=== PATIENT | female | born 1950 | race Caucasian/White ===

== ENCOUNTER 2022-08-11 11:55 | Outpatient (CLI) | payer MEDICARE, BC, SELFPAY ==
[2022-08-11 17:19] LABS: Chloride* 98 mmol/L (96-114)
[2022-08-11 17:20] LABS: Potassium* 4.4 mmol/L (3.6-5.1); Sodium* 135 mmol/L (135-149)
[2022-08-11 17:22] LABS: Cholesterol* 180 mg/dL (90-199); Creatinine* 0.5 mg/dL (0.5-1.5); Estimated Glomerular Filt Rate 100 ml/min
[2022-08-11 17:23] LABS: Blood Urea Nitrogen* 11 mg/dL (7-30); Calcium* 9.1 mg/dL (8.4-10.6); Carbon Dioxide* 31 mmol/L (20-32); Glucose* 95 mg/dL (60-115); HDL Cholesterol* 65 mg/dL (>=50); LDL Cholesterol Calculated 98 mg/dL (<100); Triglycerides* 84 mg/dL (40-149)
== END 2022-08-11 11:56 | disposition home or self-care (01) ==
PROVIDERS: PCP Family Medicine; Visit Provider Family Medicine
DX: E03.9 Hypothyroidism, unspecified (principal); E78.5 Hyperlipidemia, unspecified; Z13.1 Encounter for screening for diabetes mellitus; J44.9 Chronic obstructive pulmonary disease, unspecified; F17.210 Nicotine dependence, cigarettes, uncomplicated
CPT/HCPCS: 80048; 80061; 84443

== ENCOUNTER 2023-05-12 13:50 | Outpatient (CLI) | payer MEDICARE, BC, SELFPAY | END 2023-05-12 13:51 | disposition home or self-care (01) | LOC: LONREF 13:50 | PROVIDERS: PCP Family Medicine; Visit Provider Nurse Practitioner Family | DX: E03.9 Hypothyroidism, unspecified (principal); E78.5 Hyperlipidemia, unspecified | CPT/HCPCS: 84443 ==

== ENCOUNTER 2023-11-12 15:36 | Emergency (ER) | payer MEDICARE, BC, SELFPAY ==
[2023-11-12 15:42] VITALS: BP 100/62; PULSE 97; RESP 16; TEMP 36.7; O2SAT 92; BMI 18.3
--- NOTE | 2023-11-12 17:28 | ED.EPISTAXIS ---
History of Present Illness General Date Seen: 11/12/23 Chief Complaint: Epistaxis/Nosebleed Stated Complaint: nose bleed won't stop bleeding, largeclots Time Seen by Provider: 11/12/23 17:22 Source: patient Mode of arrival: ambulatory Limitations: no limitations History of Present Illness HPI Narrative: Patient is a 73-year-old female presenting for epistaxis. She states about 45 minutes prior to arrival to the emergency department she was having epistaxis. She states it started while she was trying to have a bowel movement. She tried to clamp her nose and lean forward and to pack it and nothing seemed to help. She states when it 1st started she was feeling lightheaded and dizzy but those symptoms have fully resolved. By time she arrived to the emergency department the bleeding has stopped. She does states she was passing large clots to her left nares and some was going down the back of her throat. No other concerns noted. Daughter states the patient appears to be acting normal. Related Data Home Medications Medication Instructions Recorded Confirmed aspirin 81 mg tablet,delayed 81 mg PO QDAY 08/11/22 11/12/23 release (Adult Aspirin Regimen) multivitamin (Multiple Vitamins 1 tab PO QDAY 08/11/22 11/12/23 tablet) Previous Rx's Medication Instructions Recorded levothyroxine 100 mcg tablet 100 mcg PO DAILY #90 tabs 09/19/23 Allergies Allergy/AdvReac Type Severity Reaction Status Date / Time No Known Drug Allergies Allergy Verified 11/12/23 15:47 Review of Systems Status of ROS: Reports: 6 or more systems reviewed and unremarkable except as noted in History and below PFSH PFSH Surgical History Status post breast biopsy ?Z98.890 - Other specified postprocedural states (ICD-10) Status post carpal tunnel release (02/11/10) ?Z98.890 - Other specified postprocedural states (ICD-10) Status post right inguinal hernia repair ?Z98.890 - Other specified postprocedural states (ICD-10) ?Z87.19 - Personal history of other diseases of the digestive system (ICD-10) Status post cholecystectomy ?Z90.49 - Acquired absence of other specified parts of digestive tract (ICD-10) Status post appendectomy ?Z90.49 - Acquired absence of other specified parts of digestive tract (ICD-10) Social History Smoking Status: Current every day smoker Second hand tobacco smoke exposure: No How often do you have a drink containing alcohol: never AUDIT-C Alcohol total score: 0 Non-prescribed substance use: denies use Little interest or pleasure in doing things: more than half the days Feeling down, depressed, or hopeless: several days Exam Narrative: Exam Narrative: Const: Well-nourished, Well-developed, in mild distress Eyes: PERRL, no conjunctival injection, and symmetrical lids HENT: Atraumatic external nose and ears. Small amount of blood seen in the back of the throat. Small amount of blood seen left nares but no signs of active bleeding. Neck: Symmetric, trachea midline, No thyromegaly. CVS: RRR, No murmurs or gallops. Peripheral pulses 2+ and equal in all extremities RESP: Unlabored respiratory effort. Clear to auscultation bilaterally. GI: Nontender/Nondistended, No rebound or guarding. MSK:Extremities w/o deformity, Normal Active ROM Skin: Warm, Dry. No rashes or lesions. Neuro: Normal Muscle tone, No focal neurological deficits. Psych: Awake, Alert, & Oriented x3. Appropriate mood and affect. Const: Vital Signs, click to edit/add: Vital Signs - 24 hr 11/12/23 15:42 Temperature 98.0 F Pulse Rate [Pulse Oximeter] 97 Respiratory Rate 16 Blood Pressure [Ri ght Upper Arm] 100/62 Pulse Oximetry 92 Oxygen Delivery Me thod Room Air Course Vital Signs Vital signs: Initial Vital Signs Temperature 98.0 F 11/12/23 15:42 Temperature Source Temporal Artery Scan 11/12/23 15:42 Pulse Rate 97 11/12/23 15:42 Respiratory Rate 16 11/12/23 15:42 Blood Pressure 100/62 11/12/23 15:42 Blood Pressure Mean 74 11/12/23 15:42 Blood Pressure Position Sitting 11/12/23 15:42 Pulse Oximetry 92 11/12/23 15:42 Oxygen Delivery Method Room Air 11/12/23 15:42 Vital Signs Temperature 98.0 F 11/12/23 15:42 Pulse Rate 97 11/12/23 15:42 Respiratory Rate 16 11/12/23 15:42 Blood Pressure 100/62 11/12/23 15:42 Pulse Oximetry 92 11/12/23 15:42 Oxygen Delivery Method Room Air 11/12/23 15:42 Temperature 98.0 F 11/12/23 15:42 Pulse Rate 97 11/12/23 15:42 Respiratory Rate 16 11/12/23 15:42 Blood Pressure 100/62 11/12/23 15:42 Pulse Oximetry 92 11/12/23 15:42 Oxygen Delivery Method Room Air 11/12/23 15:42 MDM - Epistaxis MDM Narrative Medical decision making narrative: Patient is a 73 female presenting for epistaxis. Last about 45 minutes but has now been stopped for about 2 hours. She was concerned because of how much he was bleeding at 1st. Did has some lightheadedness at 1st but that has since resolved. She does not appear pale at all. I do not believe she but enough to become anemic and I think she can be discharged home. They are agreeable with this plan. Discharge Plan Discharge Clinical Impression: Epistaxis Patient Disposition: Home, Self-Care Condition: Stable Instructions: Nosebleed (ED) Additional Instructions: If the nose starts bleeding again clamp your nose and lean forward for about 20 minutes. If he cannot get the bleeding to stop in your feeling lightheaded or dizzy return to the emergency department for evaluation as there is a small chance this could cause the become anemic. Prescriptions: No Action multivitamin [Multiple Vitamins] Tablet 1 tab PO QDAY aspirin [Adult Aspirin Regimen] 81 mg tablet,delayed release (DR/EC) 81 mg PO QDAY levothyroxine 100 mcg tablet 100 mcg PO DAILY Qty: 90 2RF Follow Up/Referrals: Darren Martinez MD [Primary Care Provider] - Stand Alone Forms: [employer] Info Instructions
== END 2023-11-12 17:32 | disposition home or self-care (01) ==
LOC: ED 17:32
PROVIDERS: Emergency Provider Student in an Organized Health Care Education/Training Program; PCP Family Medicine
DX: R04.0 Epistaxis (principal)
CPT/HCPCS: 95992; 99282; 99283

== ENCOUNTER 2024-07-20 10:05 | Outpatient (CLI) | payer MEDICARE, BC, SELFPAY | END 2024-07-20 10:06 | disposition home or self-care (01) | LOC: AMB 07-23 18:15 | PROVIDERS: PCP Family Medicine; Visit Provider Student in an Organized Health Care Education/Training Program | DX: K92.2 Gastrointestinal hemorrhage, unspecified (principal); I95.9 Hypotension, unspecified | CPT/HCPCS: A0425; A0434 ==

== ENCOUNTER 2024-07-20 10:44 | Emergency (ER) | payer MEDICARE, BC, SELFPAY ==
[2024-07-20] VITALS (33 sets, daily range): BP systolic 53–134; BP diastolic 34–88; PULSE 95–124; RESP 8–22; TEMP 35.3–36; O2SAT 90–98; BMI 19.1
--- NOTE | 2024-07-20 11:21 | ED_ITS ---
HPI - General Adult General Chief complaint: Abdominal Pain Stated complaint: GI Bleed Time Seen by Provider: 07/20/24 11:05 Source: patient Mode of arrival: EMS Limitations: no limitations History of Present Illness HPI narrative: Patient is a 74-year-old female presenting today via EMS after several episodes of syncope at home. Patient states that last night she was not feeling well and got up to use the bathroom middle of the night. She states that she did make it to the bathroom and urinated on the way there. By the time she made it to the bathroom she was exhausted and she passed out. At some point in time she had diarrhea, states that she had black stools x1 and no bright red blood in her stools. She has no idea how long she was out for but was able to get back up and crawl back into the living room. She states that she believes she passed out several times on the way back to the living room. She finally made it back to the couch and fell back asleep. She states she woke up this morning and was so short of breath that she was unable to get around her apartment. She crawled back to the bathroom to urinate again and she states that she passed out multiple times on the way to the bathroom and then passed out multiple times on the way back to the living room where she reached her phone and called 911. She denies feeling short of breath. She states that she feels very nauseated and has a lot of abdominal discomfort. She states that she has recently been having spotting for the last 3 weeks and is currently undergoing a workup for postmenopausal bleeding. She denies any vomiting or fevers. No recent illness, no cough. Past medical history significant for COPD, hyperlipidemia, hypothyroidism, GERD, PVCs. Her last colonoscopy was in 2021 and she was instructed to do a 5 year repeat. Related Data Home Medications ?Medication ?Instructions ?Recorded ?Confirmed aspirin 81 mg tablet,delayed 81 mg PO QDAY 08/11/22 11/12/23 release (Adult Aspirin Regimen) multivitamin (Multiple Vitamins 1 tab PO QDAY 08/11/22 11/12/23 tablet) Previous Rx's ?Medication ?Instructions ?Recorded levothyroxine 100 mcg tablet 100 mcg PO DAILY #90 tabs 09/19/23 Allergies Allergy/AdvReac Type Severity Reaction Status Date / Time No Known Drug Allergies Allergy Verified 11/12/23 15:47 Review of Systems Status of ROS: Reports: 10 or more systems reviewed and unremarkable except as noted in History and below PFSH PFSH Surgical History Status post breast biopsy ?Z98.890 - Other specified postprocedural states (ICD-10) Status post carpal tunnel release (02/11/10) ?Z98.890 - Other specified postprocedural states (ICD-10) Status post right inguinal hernia repair ?Z98.890 - Other specified postprocedural states (ICD-10) ?Z87.19 - Personal history of other diseases of the digestive system (ICD-10) Status post cholecystectomy ?Z90.49 - Acquired absence of other specified parts of digestive tract (ICD- 10) Status post appendectomy ?Z90.49 - Acquired absence of other specified parts of digestive tract (ICD- 10) Social History Smoking Status: Current every day smoker Second hand tobacco smoke exposure: No How often do you have a drink containing alcohol: never AUDIT-C Alcohol total score: 0 Non-prescribed substance use: denies use Little interest or pleasure in doing things: more than half the days Feeling down, depressed, or hopeless: several days Exam Narrative: Exam Narrative: Thin, frail patient in no acute distress. Alert and oriented x3. Answers questions appropriately. Mood and affect are appropriate. Thoughts are goal oriented and rational. No tangential or magical thinking noted. Patient speaks in full sentences without needing to catch her breath. Patient is hypotensive and quite pale. HEENT: Normocephalic atraumatic. Pupils are equally round reactive to light. Extraocular muscles are intact. Conjunctivae are moist without any icterus noted, pale. Moist mucous membranes. Neck is soft. Cardiovascular: Heart is regular rate and rhythm S1 and S2 are present without any murmurs. Lungs: End-expiratory crackles present bilaterally. Abdomen: Soft and nondistended. Patient guards the entire abdomen with palpation. He has normal bowel sounds. Extremities: Bilateral lower extremities are without edema. Skin: Well perfused without any obvious rashes. Very pale. Const: Vital Signs, click to edit/add: Vital Signs - 24 hr 07/20/24 10:59 07/20/24 11:02 07/20/24 11:02 Temperature 95.6 F L Pulse Rate 99 Pulse Rate [Pulse Oximeter] 98 Respiratory Rate 22 16 Blood Pressure 73/43 L Blood Pressure [Ri ght Upper Arm] 87/59 L Pulse Oximetry 98 98 Oxygen Delivery Me thod Nasal Cannula Oxygen Flow Rate 2 07/20/24 11:05 07/20/24 11:12 07/20/24 11:17 Temperature Pulse Rate 100 113 H Pulse Rate [Pulse Oximeter] Respiratory Rate Blood Pressure 75/34 L Blood Pressure [Ri ght Upper Arm] Pulse Oximetry 96 92 Oxygen Delivery Me thod Oxygen Flow Rate 07/20/24 11:22 07/20/24 11:30 07/20/24 11:32 Temperature 96.8 F L Pulse Rate 98 98 98 Pulse Rate [Pulse Oximeter] Respiratory Rate Blood Pressure 79/36 L 74/40 L Blood Pressure [Ri ght Upper Arm] Pulse Oximetry 96 97 96 Oxygen Delivery Me thod Oxygen Flow Rate 07/20/24 11:33 07/20/24 11:42 07/20/24 11:45 Temperature Pulse Rate 95 96 96 Pulse Rate [Pulse Oximeter] Respiratory Rate Blood Pressure 68/34 L Blood Pressure [Ri ght Upper Arm] Pulse Oximetry 97 98 98 Oxygen Delivery Me thod Oxygen Flow Rate 07/20/24 11:52 07/20/24 12:00 07/20/24 12:03 Temperature Pulse Rate 118 H 106 H 101 H Pulse Rate [Pulse Oximeter] Respiratory Rate 18 Blood Pressure 70/37 L 132/88 Blood Pressure [Ri ght Upper Arm] Pulse Oximetry 95 98 96 Oxygen Delivery Me thod Oxygen Flow Rate 07/20/24 12:12 07/20/24 12:15 07/20/24 12:16 Temperature Pulse Rate 96 107 H 107 H Pulse Rate [Pulse Oximeter] Respiratory Rate Blood Pressure 134/56 L 79/42 L Blood Pressure [Ri ght Upper Arm] Pulse Oximetry 96 96 92 Oxygen Delivery Me thod Oxygen Flow Rate 07/20/24 12:22 07/20/24 12:30 07/20/24 12:32 Temperature Pulse Rate 108 H 106 H 108 H Pulse Rate [Pulse Oximeter] Respiratory Rate Blood Pressure 65/42 L 73/40 L Blood Pressure [Ri ght Upper Arm] Pulse Oximetry 94 94 93 Oxygen Delivery Me thod Oxygen Flow Rate 07/20/24 12:42 07/20/24 12:43 07/20/24 12:45 Temperature Pulse Rate 114 H 112 H 111 H Pulse Rate [Pulse Oximeter] Respiratory Rate Blood Pressure 53/36 L 57/37 L Blood Pressure [Ri ght Upper Arm] Pulse Oximetry 93 90 90 Oxygen Delivery Me thod Oxygen Flow Rate 07/20/24 12:48 07/20/24 12:51 07/20/24 12:52 Temperature Pulse Rate 119 H 124 H 121 H Pulse Rate [Pulse Oximeter] Respiratory Rate Blood Pressure 71/36 L 70/39 L 75/41 L Blood Pressure [Ri ght Upper Arm] Pulse Oximetry 92 95 94 Oxygen Delivery Me thod Oxygen Flow Rate 07/20/24 12:58 07/20/24 13:00 07/20/24 13:02 Temperature 96.8 F L Pulse Rate 120 H 119 H 118 H Pulse Rate [Pulse Oximeter] Respiratory Rate 16 Blood Pressure 71/36 L 93/48 L Blood Pressure [Ri ght Upper Arm] Pulse Oximetry 95 94 92 Oxygen Delivery Me thod Oxygen Flow Rate 07/20/24 13:12 07/20/24 13:21 Temperature Pulse Rate 113 H Pulse Rate [Pulse Oximeter] Respiratory Rate Blood Pressure 75/38 L 97/57 L Blood Pressure [Ri ght Upper Arm] Pulse Oximetry 94 Oxygen Delivery Me thod Oxygen Flow Rate Course Course ED Course: Upon arrival patient's blood pressure is 87/59 after 500 mL bolus of normal saline in the ambulance. Another IV is placed for a total of 2 IVs and patient he has another L of normal saline. Type and screen is ordered, along with blood work, head and neck CT given her falls, EKG. After total of 2 L of normal saline, patient's blood pressure did not respond. Therefore Levophed was started. Patient blood pressure did respond going up to 132 systolic. Unfortunately, patient developed significant tachycardia with a pulse going up into the 130s, teletypesetter monitor reading atrial fibrillation. EKG done at this time showed an accelerated junctional rhythm versus atrial fibrillation. The patient developed significant chest pain. Because of this we did stop the Levophed. Repeat EKG shows sinus tachycardia with a pulse of 104, her pulse did become more consistent around 100-105. And her chest pain did resolve. Blood pressure dropped to 65 systolic once the Levophed was done. Another L was hung at this time. Dobutamine was ordered. IV Protonix was given. Dobutamine did increase her pulse to approximately 120, however her blood pressure also responded going up to 93 systolic. She did not develop chest pain. At this time we were also able to start the blood as it arrived in the ER. It was not cross matched. Given the instability of the patient, the benefits of giving it outweighed the subsequent 30 minutes that would be needed to cross match it. At this time, I did speak to Dr. Beaver, ER physician at [facility] who accepted the patient for transfer. He recommended switching the vasopressin if the dobutamine did not have an effect. We also discussed TXA which he recommended giving if it did not slow transfer, otherwise they could give it at [facility]. We were able to get that ordered and given before the ambulance arrived. We were also able to spike a 2nd bag of blood prior to transfer. CBC came back at this time with a hemoglobin of 8.2. BUN elevated at 44 and calcium low at 7.5. POC Trop 0.04. Chemistry showed an elevated BUN at 44. Stool occult blood positive. Ambulance arrived for transfer: Pulse 113, blood pressure 97/57, 94% on room air. We were unable to get any imaging prior to discharge. Vital Signs Vital signs: Initial Vital Signs Pulse Rate 99 07/20/24 10:59 Pulse Oximetry 98 07/20/24 10:59 Vital Signs Pulse Rate 99 07/20/24 10:59 Pulse Oximetry 98 07/20/24 10:59 Temperature 96.8 F L 07/20/24 12:58 Pulse Rate 113 H 07/20/24 13:12 Respiratory Rate 16 07/20/24 12:58 Blood Pressure 97/57 L 07/20/24 13:21 Pulse Oximetry 94 07/20/24 13:12 Oxygen Delivery Method Nasal Cannula 07/20/24 11:02 Oxygen Flow Rate 2 07/20/24 11:02 Medications Administered Medications: Generic Name Dose Route Start Last Admin Trade Name Freq PRN Reason Stop Dose Admin Dobutamine HCl 250 mg/ 250 mls @ 6.26 mls/hr 07/20/24 12:21 07/20/24 12:38 Dextrose IVPB 2 mcg/kg/min CONT PRN 6.26 mls/hr Administration 2 MCG/KG/MIN Discontinued Medications Generic Name Dose Route Start Last Admin Trade Name Albert PRN Reason Stop Dose Admin Sodium Chloride 1,000 mls @ 1,000 mls/hr 07/20/24 11:15 07/20/24 11:54 0.9 % Sodium Chloride 1000 Ml IV 07/20/24 12:14 1,000 mls/hr .Q1H DILAN Administration Tranexamic Acid 1,000 mg 07/20/24 13:02 07/20/24 13:09 Tranexamic Acid 100 Mg/Ml Inj IV 07/20/24 13:03 1,000 mg ONCE ONE Administration Medical Decision Making MDM Narrative Medical decision making narrative: 74-year-old female with GI bleed, hypotension. Treatment per above. Patient transferred to [facility] ER. Lab Data Lab results reviewed: Yes I reviewed the patient's lab results Labs: Lab Results 07/20/24 07/20/24 07/20/24 Range/Units 11:02 11:54 Unknown WBC 10.14 (4.50-11.00) K/uL RBC 2.45 L (4.00-5.20) m/uL Hgb 8.2 L (12.0-16.0) gm/dL Hct 25.8 L (33.0-51.0) % MCV 105 H (80-100) fL MCH 34 (26-34) pg MCHC 32 (32-36) gm/dL RDW Coeff of Monserrat 13.0 (11.5-15.5) % Plt Count 261 (140-440) K/uL Neut % (Auto) 81.6 H (42.0-72.0) % Lymph % (Auto) 8.8 L (20-44) % Stokes % (Auto) 8.6 (0.0-11.0) % Eos % (Auto) 0.3 (0.0-7.0) % Baso % (Auto) 0.4 (0.0-3.0) % Neut # (Auto) 8.30 H (1.7-7.0) K/uL Lymph # (Auto) 0.90 (0.90-2.90) K/uL Stokes # (Auto) 0.90 (0.00-0.90) K/UL Eos # (Auto) 0.03 (0.00-0.50) K/uL Baso # (Auto) 0.04 (0.00-0.30) K/uL Abs Immat Gran (auto) 0.03 (0.00-0.30) K/uL Imm/Tot Granulo (auto) 0.3 % Sodium 136 (135-149) mmol/L Potassium 3.8 (3.6-5.1) mmol/L Chloride 108 (96-114) mmol/L Carbon Dioxide 28 (20-32) mmol/L Anion Gap 0 L (7-15) mEq/L BUN 44 H (7-30) mg/dL Creatinine 0.5 (0.5-1.5) mg/dL Estimated Creat Clear 41.26 Estimated GFR 99 ml/min Glucose 78 (60-115) mg/dL Lactate 1.6 (0.5-1.9) mmol/L Calcium 7.5 L (8.4-10.6) mg/dL Magnesium 2.2 (1.5-2.6) mg/dL Total Bilirubin 0.1 (0.1-1.5) mg/dL Direct Bilirubin 0.1 (0.0-0.5) mg/dL AST 20 (12-35) U/L ALT 11 (4-35) U/L Alkaline Phosphatase 40 (40-150) U/L Troponin I 0.02 (0.01-0.04) ng/mL C-Reactive Protein < 0.5 L (0.5-1.0) mg/dL Total Protein 4.9 L (6.0-8.3) g/dL Albumin 2.9 L (3.3-5.0) g/dL Lipase 149 (23-300) U/L Stool Occult Blood Positive A (Negative) Blood Type A Positive Antibody Screen NEGATIVE Crossmatch (AHG) See Detail ECG Data Attestation: I personally reviewed and interpreted this ECG as follows: Critical Care Time Critical Care Time Critical Care Time: Yes Attestation: The patient required my highest level preparedness to intervene emergently and I personally spent this critical care time directly and personally managing the patient. This critical care time included: Obtaining a history; Examining the patient; Pulse oximetry; Ordering and reviewing of studies; Arranging urgent treatment with development of a management plan; Evaluation of patients response to treatment; Frequent reassessment discussions with other providers. This critical care time was performed to assess and manage the high probability of imminent life-threatening deterioration that could result in multiorgan failure. It was exclusive of separate billable procedures and treating other patients and teaching time. Total Critical Care Time in Minutes: 120 Discharge Plan Discharge Clinical Impression: Acute GI bleeding, Acute hypotension Patient Disposition: Xfer Other Condition: Critical Prescriptions: No Action multivitamin [Multiple Vitamins] Tablet 1 tab PO QDAY aspirin [Adult Aspirin Regimen] 81 mg tablet,delayed release (DR/EC) 81 mg PO QDAY levothyroxine 100 mcg tablet 100 mcg PO DAILY Qty: 90 2RF Follow Up/Referrals: Darren Martinez MD [Primary Care Provider] - Stand Alone Forms: [employer] Info Instructions
[2024-07-20 11:52] LABS: Basophils Absolute Auto 0.04 K/uL (0.00-0.30); Basophils Percent Auto 0.4 % (0.0-3.0); Eosinophils Absolute Auto 0.03 K/uL (0.00-0.50); Eosinophils Percent Auto 0.3 % (0.0-7.0); Hematocrit 25.8 % (33.0-51.0); Hemoglobin* 8.2 gm/dL (12.0-16.0); Immature Granulocytes Abs Auto 0.03 K/uL (0.00-0.30); Immature Granulocytes Pct Auto 0.3 %; Lymphocytes Percent Auto 8.8 % (20-44); Mean Corpuscular HGB Conc 32 gm/dL (32-36); Mean Corpuscular Hemoglobin 34 pg (26-34); Mean Corpuscular Volume 105 fL (80-100); Monocytes Percent Auto 8.6 % (0.0-11.0); Neutrophils Percent Auto 81.6 % (42.0-72.0); Platelet Count* 261 K/uL (140-440); Red Blood Count 2.45 m/uL (4.00-5.20); White Blood Count* 10.14 K/uL (4.50-11.00)
[2024-07-20 11:53] LABS: Chloride* 108 mmol/L (96-114); Potassium* 3.8 mmol/L (3.6-5.1); Slide Review Reflex No; Sodium* 136 mmol/L (135-149)
[2024-07-20] MEDS: 0.9 % SODIUM CHLORIDE 1000 ml 1,000 ML IV (11:54)
[2024-07-20 11:55] LABS: Creatinine* 0.5 mg/dL (0.5-1.5); Est. Creatinine Clearance* 41.26; Estimated Glomerular Filt Rate 99 ml/min
[2024-07-20 11:56] LABS: Anion Gap 0 mEq/L (7-15); Blood Urea Nitrogen* 44 mg/dL (7-30); Calcium* 7.5 mg/dL (8.4-10.6); Carbon Dioxide* 28 mmol/L (20-32); Glucose* 78 mg/dL (60-115)
[2024-07-20 11:59] LABS: Lactate* 1.6 mmol/L (0.5-1.9)
[2024-07-20 12:19] LABS: Albumin* 2.9 g/dL (3.3-5.0)
[2024-07-20 12:22] LABS: Alkaline Phosphatase* 40 U/L (40-150); Aspartate Amino Transferase* 20 U/L (12-35); Bilirubin Direct* 0.1 mg/dL (0.0-0.5); Bilirubin Total* 0.1 mg/dL (0.1-1.5); Lipase* 149 U/L (23-300); Magnesium* 2.2 mg/dL (1.5-2.6); Total Protein* 4.9 g/dL (6.0-8.3)
[2024-07-20 12:23] LABS: Alanine Aminotransferase* 11 U/L (4-35)
[2024-07-20 12:29] LABS: C Reactive Protein* < 0.5 mg/dL (0.5-1.0)
[2024-07-20 12:34] LABS: Troponin I* 0.02 ng/mL (0.01-0.04)
[2024-07-20] MEDS: DOBUTamine 250 MG in 5 % DEXTROSE 250 ML 230 ML 6.26 MG IVPB (12:38)
[2024-07-20 12:43] LABS: Fecal Occult Blood* Positive (Negative)
[2024-07-20] MEDS: TRANEXAMIC ACID 100 MG/ML INJ 1000 MG IV (13:09)
[2024-07-20 13:48] LABS: PCR FLU A Negative PCR FLU A (Negative); PCR FLU B Negative PCR FLU B (Negative); SARS PCR* Negative SARS-CoV-2 (Negative)
[2024-07-21] MEDS: PANTOPRAZOLE SODIUM 40 MG INJ 80 MG IVP (12:42)
[2024-08-20 15:23] LABS: Troponin, Point-of-Care* 0.04 ng/ml (0.01-0.04)
== END 2024-07-20 13:55 | disposition other institution (70) ==
PROVIDERS: Emergency Provider Family Medicine; PCP Family Medicine
DX: K92.2 Gastrointestinal hemorrhage, unspecified (principal); I95.9 Hypotension, unspecified
CPT/HCPCS: 36415; 36430; 80048; 80076; 81001; 82270; 83605; 83690; 83735; 84484; 85025; 86140; 86850; 86900; 86901; 86922; 87631; 93005; 94761; 96365; 96375; 99285; 99291; 99292; J1250; J2470; J7030; J7050; P9016

== ENCOUNTER 2024-07-20 13:25 | Outpatient (CLI) | payer MEDICARE, BC, SELFPAY | END 2024-07-20 13:26 | disposition home or self-care (01) | LOC: AMB 07-23 14:33 | PROVIDERS: PCP Family Medicine; Visit Provider Student in an Organized Health Care Education/Training Program | DX: R07.89 Other chest pain (principal) | CPT/HCPCS: A0425; A0427 ==

== ENCOUNTER 2025-02-08 10:36 | Outpatient (CLI) | payer MEDICARE, BC, SELFPAY ==
--- NOTE | 2025-02-08 13:01 | P.ANES_ITS ---
Anesthesia Charges Start Date/Time Anesthesia Start Date: 02/08/25 Anesthesia Start Time: 12:42 Stop Date/Time Anesthesia Stop Date: 02/08/25 Anesthesia Stop Time: 13:02 Summary Extremes of Age - Over 70 or under 1: CLINIC LEAD Coding CPT Codes CPT Codes: ANES UPR GI NDSC PX NOS - 17029 ([id number]) QX - CLINIC LEAD SVC W/ MD MED DIRECTION, QK - LIME MIXER 2-4 CNCRNT ANES PROC, P4 - PT W/SEV SYS DIS THREAT LIFE Additional Codes: Summary - Extremes of Age - Over 70 or under 1: CLINIC LEAD ([id number])
--- NOTE | 2025-02-08 13:01 | W.ANESCHARGE ---
Anesthesia Charges Start Date/Time Anesthesia Start Date: 02/08/25 Anesthesia Start Time: 12:42 Stop Date/Time Anesthesia Stop Date: 02/08/25 Anesthesia Stop Time: 13:02 Summary Extremes of Age - Over 70 or under 1: ASSISTANT PRODUCTION EDITOR Coding CPT Codes CPT Codes: ANES UPR GI NDSC PX NOS - 54856 ([id number]) QX - ASSISTANT PRODUCTION EDITOR SVC W/ MD MED DIRECTION, QK - PAPER RULER 2-4 CNCRNT ANES PROC, P4 - PT W/SEV SYS DIS THREAT LIFE Additional Codes: Summary - Extremes of Age - Over 70 or under 1: ASSISTANT PRODUCTION EDITOR ([id number])
--- NOTE | 2025-02-08 13:18 | P.ANES_ITS ---
Anesthesia Charges Start Date/Time Anesthesia Start Date: 02/08/25 Anesthesia Start Time: 12:42 Stop Date/Time Anesthesia Stop Date: 02/08/25 Anesthesia Stop Time: 13:02 Summary Extremes of Age - Over 70 or under 1: MDA Coding CPT Codes CPT Codes: ANES UPR GI NDSC PX NOS - 87384 ([id number]) QK - RADIAL DRILL PRESS SET UP OPERATOR 2-4 CNCRNT ANES PROC, QX - FILLER SIFTER MACHINE SVC W/ MD MED DIRECTION, P4 - PT W/SEV SYS DIS THREAT LIFE Additional Codes: Summary - Extremes of Age - Over 70 or under 1: MDA ([id number])
== END 2025-02-08 10:37 | disposition home or self-care (01) ==
LOC: OP CLINIC 10:41
PROVIDERS: PCP Family Medicine; Visit Provider Internal Medicine Gastroenterology
DX: R10.13 Epigastric pain (principal); K25.6 Chronic or unspecified gastric ulcer with both hemorrhage and perforation; K31.819 Angiodysplasia of stomach and duodenum without bleeding
CPT/HCPCS: 00731; 43239; 88305; 88341; 88342; 99100; J2704; J3490